=== PATIENT | female | born 1995 | race Two or more races ===

== ENCOUNTER 2016-03-01 12:32 | Emergency (ER) | payer MEDICAID ==
[~2016-03-01] VITALS: Ht 160 cm; Wt 56.7 kg
[~2016-03-01 12:32] MED LIST: CEPHALEXIN500 MG ORAL; IBUPROFEN400 MG ORAL; IBUPROFEN600 MG ORAL; NKM; TRAMADOL HCL50 MG ORAL; ZOFRAN ODT4 MG ORAL
[2016-03-01 13:04] LABS: APPEARANCE,URINE SLIGHTLY CLOUDY; KETONES,URINE NEGATIVE (NEGATIVE); LEUKOCYTE ESTERASE ,URINE 1+ (NEGATIVE); NITRITE,URINE NEGATIVE (NEGATIVE); PH,URINE 6 (4.5-8.0); PROTEIN,URINE 2+ (NEGATIVE); UROBILINOGEN,URINE 4 MG/DL (0.0-1.0)
[2016-03-01 13:25] LABS: BACTERIA,URINE FEW /HPF; MUCUS,URINE FEW /LPF (NONE/OCC); SQUAMOUS EPITHELIAL CELL,UR FEW /LPF (NONE/OCC)
--- NOTE | 2016-03-01 15:22 | Emergency Room Report ---
History of Present Illness General Chief Complaint: Vaginal Source: Patient Present Illness HPI 20-year-old female presents emergency department complaining of lower abdominal pain described as cramping in nature in addition to vaginal bleeding x 2 days Patient states that she did not have a period for the past 2 months when she normally is regular in house one the same time every month. She reports unprotected intercourse and not taking control. Patient says she my . Patient is 2 prior abortions reported as 1 pharmacologically and the other was D&C. She also reports symptoms of UTI such as frequency, urgency and dysuria. She denies vaginal lesions or history of STDs. Patient denies vaginal discharge other than bleeding. Patient reports passage of large size clots. Denies CP, Palpitations, LOC, AMS, dizziness, Changes in Vision, Sensation, paresthesias, or a sudden severe headache. Allergies: Coded Allergies: No Known Allergies (Unverified , 06/06/15) Patient History Past Medical History: see triage record Past Surgical History: none Pertinent Family History: none Last Menstrual Period: nov 2015 Now: Yes : 3 Para: 1 Reviewed Nursing Documentation: PMH: Agreed, PSxH: Agreed Nursing Documentation-PMH Past Medical History: No History, Except For Hx Asthma: Yes Review of Systems All Other Systems: negative except mentioned in HPI Physical Exam Vital Signs Date Time Temp Pulse Resp B/P Pulse Ox O2 Delivery O2 Flow Rate FiO2 03/01/16 12:39 99.1 102 16 88/49 98 Room Air Sp02 EP Interpretation: reviewed, normal General Appearance: no apparent distress, alert, GCS 15, non-toxic Head: normocephalic, atraumatic Eyes: bilateral eye PERRL, bilateral eye normal inspection ENT: hearing grossly normal, normal pharynx, no angioedema, normal voice Neck: full range of motion, supple/symm/no masses Respiratory: chest non-tender, lungs clear, normal breath sounds, speaking full sentences Cardiovascular #1: regular rate, rhythm, no edema Cardiovascular #2: 2+ radial (R), 2+ radial (L) Gastrointestinal: normal bowel sounds, non tender, soft, no guarding, no rebound Rectal: deferred Genitourinary: normal inspection, no CVA tenderness, adnexa normal, ext genitalia/vag normal, os closed, other - Moderate blood noted in the vaginal canal in addition to a large clot. Cervical os is closed. Musculoskeletal: back normal, gait/station normal, normal range of motion, non- tender, no calf tenderness Neurologic: alert, oriented x3, responsive, motor strength/tone normal, sensory intact, speech normal Psychiatric: judgement/insight normal, memory normal, mood/affect normal, no suicidal/homicidal ideation Skin: normal color, no rash, warm/dry, well hydrated Lymphatic: no adenopathy Medical Decision Making PA Attestation Dr. Suarez is my supervising Physician whom patient management has been discussed with. Diagnostic Impression: Primary Impression: Threatened in early Additional Impressions: Subchorionic hematoma in first trimester UTI (urinary tract infection) during Qualified Codes: O23.41 - Unspecified infection of urinary tract in , first trimester ER Course Pt. presents to the ED c/o vaginal bleeding: x 2 days with passage of large size clots with previously not having a menstrual cycle for 2 months and recent objective intercourse. Ddx considered but are not limited to: Fibroid, ectopic , Fibroid, Spontaneous ,Miscarriage, UTI Vital signs: are WNL, pt. is afebrile Pelvic Exam: moderate blood and clots in the vaginal vault, cervical os is closed. H&PE are most consistent with: Threatened , and possible UTI ORDERS: -Urine hcg- Positive - UTI: Bacteria noted, white blood cells, leukocyte esterase indicating urinary tract infection -serum Hcg Quant: [id number] - Blood/RH type and screen- see attached labs : A positive -Pelvic US complete- single -Live intrauterine estimated at 7 weeks gestation , Large subchorionic hematoma- Per official radiology report. ED INTERVENTIONS: None at this time. - d/w the patient the results of her UA and other lab tests. d/w the patient that she'll be placed on antibiotic for UTI as well as bedrest and will need to followup within 48 hours with [facility]. DISCHARGE: At this time pt. is stable for d/c to home. Will provide printed patient care instructions, and any necessary prescriptions. Care plan and follow up instructions have been discussed with the patient prior to discharge. Labs Test 03/01/16 12:51 03/01/16 14:00 Urine Color Yellow Urine Appearance Slightly cloudy Urine pH 6 (4.5-8.0) Urine Specific [place] 1.015 (1.005-1.035) Urine Protein 2+ (NEGATIVE) Urine Glucose (UA) Negative (NEGATIVE) Urine Ketones Negative (NEGATIVE) Urine Occult Blood 4+ (NEGATIVE) Urine Nitrite Negative (NEGATIVE) Urine Bilirubin Negative (NEGATIVE) Urine Urobilinogen 4 MG/DL (0.0-1.0) Urine Leukocyte Esterase 1+ (NEGATIVE) Urine RBC 2-4 /HPF (0 - 2) Urine WBC 5-10 /HPF (0 - 2) Urine Squamous Epithelial Cells Few /LPF (NONE/OCC) Urine Bacteria Few /HPF (NONE) Urine Mucus Few /LPF (NONE/OCC) Urine HCG, Qualitative Positive Human Chorionic Gonadotropin, Quant 70478 mIU/mL Last Vital Signs Date Time Temp Pulse Resp B/P Pulse Ox O2 Delivery O2 Flow Rate FiO2 03/01/16 12:39 99.1 102 16 88/49 98 Room Air Disposition: HOME, SELF-CARE Condition: Stable Scripts Nitrofurantoin Monohyd/M-Cryst* (MACROBID 100 MG*) 100 Mg Capsule 100 MG ORAL EVERY 12 HOURS for 7 Days, #14 CAP Prov: Nancy Amador 03/01/16 Referrals: NOT CHOSEN [facility]/,REFERRING (PCP) Patient Instructions: and Urinary Tract Infection, Subchorionic Hematoma Additional Instructions: Take medications as directed. BED REST Follow up with OBGYN in 48 hours Return sooner to ED if new symptoms occur, or current symptoms become worse. Nancy Amador Mar 01, 2016 15:22
[2016-03-01] MEDS ORDERED: NITROFURANTOIN100 M2 ORAL (15:39)
[2016-03-01 15:53] VITALS: BP 104/63
--- NOTE | 2016-03-08 10:29 | Diagnostic Imaging Report ---
Indication: PAIN, bleeding, positive test Technique: Transabdominal and transvaginal images Comparison: None Findings: Uterus measures 8.8 cm length by 7.1 cm AP. Within the endometrium, there is a gestational sac. This contains a pole and a yolk sac, positive heart activity, heart rate 144 beats per minute. [place]-rump length is 13 mm, corresponding to an estimated gestational age 7 weeks 4 days. Adjacent to the gestational sac, there is an area of heterogeneous echogenicity which probably represents a subchorionic hemorrhage. No myometrial abnormality. Right ovary measures 2.6 cm in length. Left ovary measures 2.9 cm in length. No adnexal mass demonstrated. Trace free cul-de-sac fluid is demonstrated. Impression: 7 week 4 day, by crown-rump length, single live intrauterine Subchorionic hemorrhage noted adjacent to the gestational sac Negative for adnexal mass Trace free cul-de-sac fluid This agrees with the preliminary interpretation provided overnight by Dr. Cintron
== END 2016-03-01 15:53 | disposition home or self-care (01) ==
LOC: EMR 12:55
DX: O20.0 Threatened abortion (principal); O23.41 Unspecified infection of urinary tract in pregnancy, first trimester; Z3A.01 Less than 8 weeks gestation of pregnancy; J45.909 Unspecified asthma, uncomplicated
CPT/HCPCS: 36415; 76801; 76830; 81003; 81025; 84702; 86850; 86900; 86901; 99283

== ENCOUNTER → 2016-08-18 | Emergency (ER) | payer OTHER, MEDICAID ==
[~2016-08-18] VITALS: Ht 160 cm; Wt 61.2 kg
[~2016-08-18] MED LIST changes: +GUAIFENESIN1200 MG PO; +NITROFURANTOIN100 M2 ORAL; +PROMETHAZINE-D118 ML ORAL
[2016-08-18 15:50] VITALS: BP 101/66
--- NOTE | 2016-08-18 16:52 | Emergency Room Report ---
History of Present Illness General Chief Complaint: Sore Throat Source: Patient Present Illness HPI 21-year-old female presents emergency department complaining of 9/10 in severity sore throat with nonproductive cough with increase in phlegm x3 days patient denies fevers or chills. Patient denies ill contacts and states she is up-to-date with vaccinations. Patient denies tonsillar swelling, swollen tender lymph nodes, rashes, abdominal pain. Pt. reports hx of asthma. Denies CP , Palpitations, LOC, AMS, dizziness, Changes in Vision, Sensation, paresthesias , or a sudden severe headache. Allergies: Coded Allergies: No Known Allergies (Unverified , 06/06/15) Patient History Past Medical History: see triage record Past Surgical History: none Pertinent Family History: none Last Menstrual Period: July 25, 2016 Now: No Immunizations: UTD Reviewed Nursing Documentation: PMH: Agreed, PSxH: Agreed Nursing Documentation-PMH Hx Asthma: Yes Review of Systems All Other Systems: negative except mentioned in HPI Physical Exam Vital Signs Date Time Temp Pulse Resp B/P Pulse Ox O2 Delivery O2 Flow Rate FiO2 08/18/16 15:50 98.6 115 14 101/66 99 Room Air Sp02 EP Interpretation: reviewed, normal General Appearance: no apparent distress, alert, GCS 15, non-toxic Head: normocephalic, atraumatic Eyes: bilateral eye PERRL, bilateral eye normal inspection ENT: hearing grossly normal, normal pharynx, no angioedema, normal voice, TMs + canals normal, uvula midline, moist mucus membranes Neck: full range of motion, supple/symm/no masses Respiratory: lungs clear, normal breath sounds, no wheezing, speaking full sentences Cardiovascular #1: regular rate, rhythm, no edema Musculoskeletal: back normal, gait/station normal, normal range of motion, non- tender Neurologic: alert, oriented x3, responsive, motor strength/tone normal, sensory intact, speech normal Psychiatric: judgement/insight normal, memory normal, mood/affect normal Skin: normal color, no rash, warm/dry, well hydrated Lymphatic: no adenopathy Medical Decision Making PA Attestation Dr. Ventura is my supervising Physician whom patient management has been discussed with. Diagnostic Impression: Primary Impression: Upper respiratory infection Qualified Codes: J06.9 - Acute upper respiratory infection, unspecified; B97.89 - Other viral agents as the cause of diseases classified elsewhere ER Course 21-year-old female presents emergency department complaining of 9/10 in severity sore throat with nonproductive cough with increase in phlegm x3 days patient denies fevers or chills. Patient denies ill contacts and states she is up-to-date with vaccinations. Patient denies tonsillar swelling, swollen tender lymph nodes, rashes, abdominal pain. Pt. reports hx of asthma. Ddx considered but are not limited to URI, pneumonia, PE, strep pharyngitis, meningitis. Vital signs: Pt. is afebrile, the remaining VS are WNL H&PE are most consistent with URI- no meningeal signs, oropharynx is not involved, no evidence of bacterial infection at this time. ORDERS: none required at this time, the diagnosis is clinical ED INTERVENTIONS: None required at this time. --PT. EDUCATION: Discussed antibiotic resistance with inappropriate prescribing of antibiotics for viral illnesses. Discussed signs and symptoms to indicate viral illness versus bacterial illness. DISCHARGE: At this time pt. is stable for d/c to home. Will provide printed patient care instructions, and any necessary prescriptions. Care plan and follow up instructions have been discussed with the patient prior to discharge. Last Vital Signs Date Time Temp Pulse Resp B/P Pulse Ox O2 Delivery O2 Flow Rate FiO2 08/18/16 15:50 98.6 115 14 101/66 99 Room Air Disposition: HOME, SELF-CARE Condition: Stable Scripts D-Methorphan Hb/Prometh Hcl* (PROMETHAZINE-DM SYRUP*) 118 Ml Syrup 5 ML ORAL Q6H Y for For Cough, #118 ML 0 Refills Prov: Nancy Amador 08/18/16 Guaifenesin (Guaifenesin) 1,200 Mg Tab.er.12h 1200 MG PO BID for 10 Days, #20 TAB Prov: Nancy Amador 08/18/16 Patient Instructions: Upper Respiratory Infection, Adult, [id number] Additional Instructions: Take medications as directed. Follow up with PCP in 3-5 days Return sooner to ED if new symptoms occur, or current symptoms become worse. - Please note that this Emergency Department Report was dictated using [employer] analyst technology software, occasionally this can lead to erroneous entry secondary to interpretation by the dictation equipment. Nancy Amador Aug 18, 2016 16:52
[2016-08-18 17:10] VITALS: BP 101/66
== END | disposition home or self-care (01) ==
LOC: EMR 16:50
DX: J06.9 Acute upper respiratory infection, unspecified (principal); J45.909 Unspecified asthma, uncomplicated
CPT/HCPCS: 99284

== ENCOUNTER 2016-10-12 14:43 | Emergency (ER) | payer OTHER, MEDICAID ==
[~2016-10-12] VITALS: Ht 160 cm; Wt 59.0 kg
[2016-10-12] MEDS ORDERED: PROAIR HFA8.5 GM INH (15:12)
[2016-10-12] MEDS ORDERED: PREDNISONE20 MG ORAL (15:12)
[2016-10-12] MEDS ORDERED: AMOXICILLIN500 MG ORAL (15:12)
[2016-10-12] MEDS ORDERED: PROMETHAZI6.25 MG/1 ORAL (15:12)
--- NOTE | 2016-10-12 15:24 | Emergency Room Report ---
History of Present Illness General Chief Complaint: Sore Throat Source: Patient Present Illness HPI The patient is a 21-year-old female with a history of asthma presenting for sore throat and cough for the past 2 days. She also admits to subjective fevers and chills. Pain described as an 8/10 dull ache to the back of the throat. Worse with swallowing and coughing. She denies any sick contacts recent travel. She states that she has run out of her albuterol. She denies any other symptoms including SOB, CP, rash, dizziness, abd pain Allergies: Coded Allergies: No Known Allergies (Unverified , 06/06/15) Patient History Past Medical History: see triage record Pertinent Family History: none Last Menstrual Period: now Now: No Reviewed Nursing Documentation: PMH: Agreed, PSxH: Agreed Nursing Documentation-PMH Past Medical History: No History, Except For Hx Asthma: Yes Review of Systems All Other Systems: negative except mentioned in HPI Physical Exam Vital Signs Date Time Temp Pulse Resp B/P Pulse Ox O2 Delivery O2 Flow Rate FiO2 10/12/16 14:52 98.6 97 18 108/73 98 Room Air Sp02 EP Interpretation: reviewed, normal General Appearance: no apparent distress, alert, GCS 15, non-toxic Head: normocephalic, atraumatic Eyes: bilateral eye PERRL, bilateral eye normal inspection ENT: hearing grossly normal, no angioedema, normal voice, uvula midline, tonsillar swelling, pharyngeal erythema, tonsillar exudate Neck: full range of motion, supple/symm/no masses Respiratory: chest non-tender, lungs clear, normal breath sounds, speaking full sentences Musculoskeletal: back normal, gait/station normal, normal range of motion, non- tender Neurologic: alert, oriented x3, responsive, motor strength/tone normal, sensory intact, speech normal Psychiatric: judgement/insight normal, memory normal, mood/affect normal, no suicidal/homicidal ideation Skin: normal color, no rash, warm/dry, well hydrated Lymphatic: adenopathy - cervical Medical Decision Making PA Attestation Dr. Pyle is my supervising physician. Patient management was discussed with my supervising physician Diagnostic Impression: Primary Impression: Pharyngitis, acute Qualified Codes: J02.9 - Acute pharyngitis, unspecified ER Course The patient is a 21-year-old female presenting with sore throat and cough Differential diagnosis include but not limited to pharyngitis, sinusitis, AOM, bronchitis, PNA, asthma, amogn others Physical exam: Vitals within normal limits. Afebrile. No apparent distress HEENT exam: There is bilateral tonsillar edema, erythema, and exudate. Uvula midline. Moist mucous membranes. There is bilateral cervical lymphadenopathy. Lungs are clear to auscultation bilaterally Skin is warm and dry. No rash The patient will be discharged home with a prescription for amoxicillin, prednisone, cough medication and is given ER precautions. Patient will followup with primary care. Refill for albuterol given. Last Vital Signs Date Time Temp Pulse Resp B/P Pulse Ox O2 Delivery O2 Flow Rate FiO2 10/12/16 14:52 98.6 97 18 108/73 98 Room Air Status: improved Disposition: HOME, SELF-CARE Condition: Improved Scripts Albuterol Sulfate* (PROAIR HFA*) 8.5 Gm Hfa.aer.ad 2 PUFFS INH Q6H, #8.5 GM 0 Refills Prov: SHARI RANDA. 10/12/16 Promethazine Hcl (PROMETHAZINE HCL*) 6.25 Mg/5 Ml Syrup 5 ML ORAL Q8H, #120 ML 0 Refills Prov: SHARI RAND P.A. 10/12/16 Prednisone* (PREDNISONE*) 20 Mg Tablet 20 MG ORAL DAILY, #5 TAB 0 Refills Prov: TERZIANCLIFFORDY P.A. 10/12/16 Amoxicillin* (AMOXIL*) 500 Mg Capsule 500 MG ORAL Q12HR, #20 CAP Prov: TACHOANSHARI P.A. 10/12/16 Patient Instructions: Pharyngitis Additional Instructions: I discussed my findings with the patient. All questions and concerns have been answered. Treatment and medication compliance have been addressed. I advised the patient that they need to follow up with PMD in 3-5 days. Return to ED if pain remains or worsens, cough worsens or remains, you notice blood in your sputum, you notice wheezing, you experience a fever, or if needed for any reason. Patient verbalized understanding of discharge instructions. SHARI RAND Oct 12, 2016 15:24
[2016-10-12 15:33] VITALS: BP 108/73
[2016-10-12 15:36] VITALS: BP 108/73
== END 2016-10-12 15:36 | disposition home or self-care (01) ==
LOC: EMR 15:02
DX: J02.9 Acute pharyngitis, unspecified (principal); J45.909 Unspecified asthma, uncomplicated
CPT/HCPCS: 99284

== ENCOUNTER 2016-11-07 09:38 | Emergency (ER) | payer OTHER, MEDICAID ==
[~2016-11-07] VITALS: Ht 160 cm; Wt 61.2 kg
[~2016-11-07 09:38] MED LIST changes: +AMOXICILLIN500 MG ORAL; +PREDNISONE20 MG ORAL; +PROAIR HFA8.5 GM INH; +PROMETHAZI6.25 MG/1 ORAL
--- NOTE | 2016-11-07 09:53 | Emergency Room Report ---
History of Present Illness General Chief Complaint: Sore Throat Source: Patient Present Illness HPI Patient with sore throat for several weeks. States passing between daughter and herself. Pain with swallowing 09/07, sharp, not radiating. Taking advil with minimal relief. Also has cough which is not productive. H/O asthma. No wheezing heard. Treated with prednisone, amox and phenergan DM 10/12. States not significantly better. No smoking. No NVD, not . 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 Last Menstrual Period: 10/17/16 Now: No Reviewed Nursing Documentation: PMH: Agreed, PSxH: Agreed Nursing Documentation-PMH Hx Asthma: Yes Review of Systems All Other Systems: negative except mentioned in HPI Physical Exam Vital Signs Date Time Temp Pulse Resp B/P (MAP) Pulse Ox O2 Delivery O2 Flow Rate FiO2 11/07/16 09:41 97.9 90 17 101/63 99 Room Air Sp02 EP Interpretation: reviewed, normal General Appearance: well appearing, no apparent distress Head: normocephalic, atraumatic Eyes: bilateral eye normal inspection, bilateral eye PERRL ENT: hearing grossly normal, normal voice, pharyngeal erythema, other - no exudates or swelling Neck: full range of motion, supple Respiratory: lungs clear, normal breath sounds, no respiratory distress, speaking full sentences Cardiovascular #1: regular rate, rhythm Cardiovascular #2: 2+ radial (L) Gastrointestinal: normal inspection Musculoskeletal: back normal, digits/nails normal, gait/station normal, normal range of motion, no calf tenderness Neurologic: alert, oriented x3, normal gait, grossly normal Psychiatric: mood/affect normal Skin: no rash Medical Decision Making Diagnostic Impression: Primary Impression: Upper respiratory infection Qualified Codes: J06.9 - Acute upper respiratory infection, unspecified ER Course Patient with persistent sore throat and cough post treatment with abx 10/12. No exudates at this time. More viral symptomatology. No significant bronchospasm (still has albuterol). Focus on treatment of symptoms. Discussed this with patient. Patient stable for outpatient observation and treatment. (Patient made a point of asking for stronger cough syrup than DM.) Last Vital Signs Date Time Temp Pulse Resp B/P (MAP) Pulse Ox O2 Delivery O2 Flow Rate FiO2 11/07/16 10:01 97.9 17 101/63 99 Room Air 11/07/16 10:00 88 Status: unchanged Disposition: HOME, SELF-CARE Condition: Stable Scripts Promethazine HCl/Codeine (Prometh-Codein 6.25-10 mg/5 ml) 5 Ml Syrup 5 ML PO Q6HR, #60 ML Prov: Alvarez Pyle M.D. 11/07/16 Chlorpheniramine Maleate (CHLOR-TRIMETON) 4 Mg Tablet 4 MG PO Q6HR Y for congestion, #14 TAB Prov: Alvarez Pyle M.D. 11/07/16 Alvarez Pyle M.D. Nov 07, 2016 09:53
[2016-11-07] MEDS ORDERED: PROMETH-CODEIN 65 ML PO (09:56)
[2016-11-07] MEDS ORDERED: CHLOR-TRIMETON4 MG PO (09:56)
[2016-11-07 10:00] VITALS: BP 103/65
[2016-11-07 10:01] VITALS: BP 101/63
== END 2016-11-07 10:04 | disposition home or self-care (01) ==
LOC: EMR 09:59
DX: J06.9 Acute upper respiratory infection, unspecified (principal); J45.909 Unspecified asthma, uncomplicated
CPT/HCPCS: 99284

== ENCOUNTER 2016-12-11 14:01 | Emergency (ER) | payer OTHER, MEDICAID ==
[~2016-12-11] VITALS: Ht 160 cm; Wt 57.6 kg
[~2016-12-11 14:01] MED LIST changes: +CHLOR-TRIMETON4 MG PO; +PROMETH-CODEIN 65 ML PO
[2016-12-11 14:21] VITALS: BP 103/64
[2016-12-11] MEDS ORDERED: PROAIR HFA8.5 GM INH (14:25)
[2016-12-11] MEDS ORDERED: PROMETHAZINE-D118 ML ORAL (14:25)
[2016-12-11] MEDS ORDERED: CLARITIN-D 241 EACH PO (14:25)
[2016-12-11] MEDS ORDERED: FLONASE SENSIM9.9 ML NS (14:25)
--- NOTE | 2016-12-11 16:53 | Emergency Room Report ---
History of Present Illness General Chief Complaint: Medication Refill Source: Patient Present Illness HPI The patient is a 21-year-old female with a history of asthma presenting for albuterol refill as well as cough and nasal congestion x 1 week. She states that she has been becoming short of breath during activity such as climbing stairs. She also admits to allergies but is unsure what she is allergic to. She has not taken any medications. She denies any known sick contacts or recent travel. She denies other symptoms including fever, chills, headache, sore throat, rash Allergies: Coded Allergies: No Known Allergies (Unverified , 06/06/15) Patient History Past Medical History: see triage record Pertinent Family History: none Reviewed Nursing Documentation: PMH: Agreed, PSxH: Agreed Nursing Documentation-PMH Hx Asthma: Yes Review of Systems All Other Systems: negative except mentioned in HPI Physical Exam Vital Signs Date Time Temp Pulse Resp B/P (MAP) Pulse Ox O2 Delivery O2 Flow Rate FiO2 12/11/16 14:06 98.8 119 20 103/64 99 Room Air Sp02 EP Interpretation: reviewed, normal General Appearance: no apparent distress, alert, GCS 15, non-toxic Head: normocephalic, atraumatic Eyes: bilateral eye normal inspection, bilateral eye PERRL ENT: hearing grossly normal, normal pharynx, no angioedema, normal voice, TMs + canals normal, uvula midline, nasal congestion Neck: full range of motion, supple/symm/no masses Respiratory: chest non-tender, lungs clear, normal breath sounds, speaking full sentences Cardiovascular #1: regular rate, rhythm, no edema Musculoskeletal: back normal, gait/station normal, normal range of motion, non- tender Neurologic: alert, oriented x3, responsive, motor strength/tone normal, sensory intact, speech normal Psychiatric: judgement/insight normal, memory normal, mood/affect normal, no suicidal/homicidal ideation Skin: normal color, no rash, warm/dry, well hydrated Lymphatic: no adenopathy Medical Decision Making PA Attestation Dr. Gilmore is my supervising physician. Patient management was discussed with my supervising physician Diagnostic Impression: Primary Impression: Asthma Qualified Codes: J45.20 - Mild intermittent asthma, uncomplicated Additional Impressions: Environmental allergies Allergic rhinitis Qualified Codes: J30.9 - Allergic rhinitis, unspecified ER Course The patient is a 21-year-old female presenting for albuterol refill and allergies Differential diagnoses considered but not limited to: Asthma exacerbation, bronchitis, pneumonia, anxiety, allergies Physical exam: Vitals within normal limits. No apparent distress HEENT exam reveals nasal congestion. Oropharynx unremarkable Lungs: Lungs are clear to auscultation bilaterally. Chest is nontender. No respiratory distress. No accessory muscle use. The patient is given refill of albuterol as well as medications for allergic rhinitis. She'll followup with her primary doctor. ER precautions given Last Vital Signs Date Time Temp Pulse Resp B/P (MAP) Pulse Ox O2 Delivery O2 Flow Rate FiO2 12/11/16 15:08 98.8 20 103/64 99 Room Air 12/11/16 14:06 119 Status: improved Disposition: HOME, SELF-CARE Condition: Improved Scripts Loratadine/Pseudoephedrine (CLARITIN-D 24 HOUR TABLET) 1 Each Tab.er.24h 1 TAB PO DAILY, #30 TAB Prov: TERZIAN,SHARI P.A. 12/11/16 Fluticasone Furoate (FLONASE SENSIMIST) 9.9 Ml Dietrich.susp 1 ML NS DAILY, #10 ML Prov: TERZIAN,SHARI P.A. 12/11/16 D-Methorphan Hb/Prometh Hcl* (PROMETHAZINE-DM SYRUP*) 118 Ml Syrup 5 ML ORAL Q6H Y for For Cough, #120 ML 0 Refills Prov: TERZIAN,SHARI P.A. 12/11/16 Albuterol Sulfate* (PROAIR HFA*) 8.5 Gm Hfa.aer.ad 2 PUFFS INH Q6H, #8.5 GM 0 Refills Prov: TERZIAN,SHARI P.A. 12/11/16 Ref[facility]: [facility] (PCP) Patient Instructions: Asthma, Adult, Allergic Rhinitis Additional Instructions: I discussed my findings with the patient. All questions and concerns have been answered. Treatment and medication compliance have been addressed. I advised the patient that they need to follow up with PMD in 3-5 days. Return to ED if pain remains or worsens, cough worsens or remains, you notice blood in your sputum, you notice wheezing, you experience a fever, or if needed for any reason. Patient verbalized understanding of discharge instructions. SHARI RAND Dec 11, 2016 16:53
== END 2016-12-11 14:30 | disposition home or self-care (01) ==
LOC: EMR 14:20
DX: J45.909 Unspecified asthma, uncomplicated (principal); J30.9 Allergic rhinitis, unspecified
CPT/HCPCS: 99284

== ENCOUNTER 2017-03-14 15:47 | Emergency (ER) | payer MEDICAID, OTHER ==
[~2017-03-14] VITALS: Ht 160 cm; Wt 56.7 kg
[~2017-03-14 15:47] MED LIST changes: +CLARITIN-D 241 EACH PO; +FLONASE SENSIM9.9 ML NS
[2017-03-14] MEDS ORDERED: ALBUTEROL SULF8.5 GM INH (16:22)
[2017-03-14] MEDS ORDERED: TESSALON PERLE100 MG ORAL (16:22)
[2017-03-14] MEDS ORDERED: IBUPROFEN600 MG ORAL (16:22)
[2017-03-14 16:35] VITALS: BP 111/78
--- NOTE | 2017-03-14 16:59 | Emergency Room Report ---
History of Present Illness General Chief Complaint: Flu Like Symptoms Source: Patient Present Illness HPI 21-year-old female with pmhx asthma p/w cough sore throat, runny nose for 3 days. Pt states cough is productive, with clear non bloody sputum. Denies fever chills sob or chest pain. No sick contacts or recent travel. Patient does not smoke. Allergies: Coded Allergies: No Known Allergies (Unverified , 06/06/15) Patient History Past Medical History: see triage record Past Surgical History: none Pertinent Family History: none Last Menstrual Period: 03/01/2017 Reviewed Nursing Documentation: PMH: Agreed, PSxH: Agreed Nursing Documentation-PMH Past Medical History: No History, Except For Hx Asthma: Yes Review of Systems All Other Systems: negative except mentioned in HPI Physical Exam Vital Signs Date Time Temp Pulse Resp B/P (MAP) Pulse Ox O2 Delivery O2 Flow Rate FiO2 03/14/17 16:04 99.0 96 16 109/67 99 Room Air Sp02 EP Interpretation: reviewed, normal General Appearance: normal inspection, well appearing, no apparent distress, alert, GCS 15, non-toxic Head: normocephalic, atraumatic Eyes: bilateral eye normal inspection, bilateral eye PERRL, bilateral eye EOMI ENT: tonsillar swelling, pharyngeal erythema, other - no exudates. uvula midline.no cryptanalyst Neck: normal inspection, full range of motion, supple Respiratory: normal inspection, lungs clear, normal breath sounds, no respiratory distress, no retraction, no wheezing, speaking full sentences, chest symmetrical Cardiovascular #1: normal inspection, regular rate, rhythm, no edema, normal capillary refill Cardiovascular #2: 2+ radial (R), 2+ radial (L) Gastrointestinal: normal inspection, non tender, soft, non-distended, no guarding Musculoskeletal: normal inspection, back normal, normal range of motion, non- tender Neurologic: normal inspection, alert, oriented x3, responsive, motor strength/ tone normal, sensory intact, normal gait, speech normal Psychiatric: normal inspection, judgement/insight normal, memory normal Skin: normal inspection, normal color, no rash, warm/dry, well hydrated, normal turgor Medical Decision Making Diagnostic Impression: Primary Impression: Viral syndrome ER Course 21-year-old female with asthma presenting with cough sore throat runny nose DDX: Viral URI Plan: Motrin ER course: Patient remains nontoxic, not in resp distress. Disposition: Patient is to be discharged home with a prescription of dieudonne donald Motavinash , asthma inhaler Strict precautions discussed with patient on when to return to the emergency room including hemoptysis, high fevers, chills, SOB, chest pain which may indicate severe illness. Patient is to follow up with their primary care doctor within 5 days. Patient agrees with plan. Please note that this Emergency Department Report was dictated using [employer] manager technology software, occasionally this can lead to erroneous entry secondary to interpretation by the dictation equipment Last Vital Signs Date Time Temp Pulse Resp B/P (MAP) Pulse Ox O2 Delivery O2 Flow Rate FiO2 03/14/17 16:35 80 19 111/78 99 03/14/17 16:04 99.0 Room Air Disposition: HOME, SELF-CARE Condition: Improved Scripts Ibuprofen* (MOTRIN*) 600 Mg Tablet 600 MG ORAL Q8H Y for For Pain, #30 TAB 0 Refills Prov: Levi Mascorro M.D. 03/14/17 Albuterol Sulfate* (ALBUTEROL SULFATE MDI*) 8.5 Gm Hfa.aer.ad 2 PUFF INH Q4H Y for cough/wheezing, #1 EA 0 Refills Prov: Levi Mascorro M.D. 03/14/17 Benzonatate* (JUDISALON PERLE*) 100 Mg Capsule 100 MG ORAL THREE TIMES A DAY Y for For Cough, #21 PERLE Prov: Levi Mascorro M.D. 03/14/17 Patient Instructions: Upper Respiratory Infection, Adult, Choh-br-Ewsy Levi Mascorro M.D. Mar 14, 2017 16:59
== END 2017-03-14 18:30 | disposition home or self-care (01) ==
LOC: EMR 18:15
DX: B34.9 Viral infection, unspecified (principal)
CPT/HCPCS: 99283

== ENCOUNTER 2018-06-29 23:21 | Emergency (ER) | payer MEDICAID ==
[~2018-06-29] VITALS: Ht 160 cm; Wt 79.8 kg
[~2018-06-29 23:21] MED LIST changes: +ALBUTEROL SULF8.5 GM INH; +TESSALON PERLE100 MG ORAL
[2018-06-29 23:28] VITALS: BP 109/66
--- NOTE | 2018-06-29 23:30 | NUR ---
ED Nurse Note: pt came to ed c/o of sore throat for 2 days. denies headache, nausea.
[2018-06-29] MEDS ORDERED: AUGMENTIN 875-1 EAC1 ORAL (23:48)
[2018-06-29] MEDS ORDERED: HYDROCODON-ACE1 EA15 ORAL (23:48)
[2018-06-29] MEDS ORDERED: ALBUTEROL SULF8.5 GM INH (23:48)
[2018-06-29] MEDS ORDERED: IBUPROFEN600 MG ORAL (23:48)
--- NOTE | 2018-06-29 23:48 | Emergency Room Report ---
History of Present Illness General Chief Complaint: Sore Throat Source: Patient Present Illness HPI Is a 22-year-old female with a history of asthma. She presents with complaint of sore throat. Onset for last 2 days. Has low-grade fever. No nausea no vomiting. No cough or congestion. No ear pain. Pain is 9 out of 10. Worse with swallowing. Nothing made it better. Allergies: Coded Allergies: No Known Allergies (Unverified , 06/06/15) Patient History Past Medical History: see triage record, old chart reviewed, asthma Past Surgical History: none Pertinent Family History: none Social History: Denies: smoking Last Menstrual Period: 06/01/18 Now: No : 2 Para: 2 Immunizations: other Reviewed Nursing Documentation: PMH: Agreed; PSxH: Agreed Nursing Documentation-PMH Past Medical History: No History, Except For Hx Asthma: Yes Review of Systems Constitutional: Reports: fever Eye: Denies: eye pain, blurred vision ENT: Reports: throat pain; Denies: ear pain, nose congestion, throat swelling Respiratory: Denies: cough, shortness of breath Cardiovascular: Denies: chest pain, palpitations Gastrointestinal: Denies: abdominal pain, diarrhea, nausea, vomiting Musculoskeletal: Denies: back pain, joint pain Skin: Denies: rash Neurological: Denies: headache, numbness Endocrine: Denies: increased thirst, increased urine Hematologic/Lymphatic: Denies: easy bruising All Other Systems: negative except mentioned in HPI Physical Exam Vital Signs Date Time Temp Pulse Resp B/P (MAP) Pulse Ox O2 Delivery O2 Flow Rate FiO2 06/29/18 23:23 100.0 98 18 109/66 100 Room Air vitals with fever Sp02 EP Interpretation: reviewed, normal General Appearance: well appearing, no apparent distress, alert Head: normocephalic, atraumatic Eyes: bilateral eye PERRL, bilateral eye EOMI ENT: hearing grossly normal, tonsillar swelling, pharyngeal erythema, tonsillar exudate Neck: full range of motion, supple, no meningismus Respiratory: chest non-tender, lungs clear, normal breath sounds Cardiovascular #1: regular rate, rhythm, no murmur Gastrointestinal: normal bowel sounds, non tender, no mass, no organomegaly, no bruit, non-distended Musculoskeletal: back normal, gait/station normal, normal range of motion Psychiatric: mood/affect normal Skin: warm/dry Medical Decision Making Diagnostic Impression: Primary Impression: Pharyngitis, acute Qualified Codes: J02.9 - Acute pharyngitis, unspecified ER Course Patient with an acute pharyngitis. Most likely strep since she has no other URI symptoms. We'll start her antibiotics. No evidence of peritonsillar abscess, retropharyngeal abscess or Magdy angina. She has no trismus. We'll discharge home. Last Vital Signs Date Time Temp Pulse Resp B/P (MAP) Pulse Ox O2 Delivery O2 Flow Rate FiO2 06/29/18 23:28 100.0 98 18 109/66 100 Room Air Status: improved Disposition: HOME, SELF-CARE Condition: Stable Scripts Ibuprofen* (MOTRIN*) 600 Mg Tablet 600 MG ORAL THREE TIMES A DAY, #30 TAB 0 Refills Prov: James Resendiz MD 06/29/18 Hydrocodone/Acetaminophen 5-325* (HYDROCODONE/ACETAMINOPHEN 5-325*) 1 Each Tablet 1 TAB ORAL Q6H PRN for For Pain, #15 TAB 0 Refills Prov: James Resendiz MD 06/29/18 Amoxicillin/Potassium Clav 875-125* (AUGMENTIN 875-125 TABLET*) 1 Each Tablet 1 TAB ORAL TWICE A DAY, #14 TAB Prov: James Resendiz MD 06/29/18 Albuterol Sulfate* (ALBUTEROL SULFATE MDI*) 8.5 Gm Hfa.aer.ad 2 PUFF INH Q4H PRN for cough/wheezing, #1 EA 0 Refills Prov: James Resendiz MD 06/29/18 Patient Instructions: Tonsillitis Additional Instructions: Increase fluids. Salt water gargle. Follow-up with your doctor in 7 days if not better. Return if worse. James Resendiz MD June 29, 2018 23:48
[2018-06-29 23:52] VITALS: BP 109/66
--- NOTE | 2018-06-29 23:53 | NUR ---
ER DISCHARGE NOTE: Patient is cleared to be discharged per ERMD, pt is aox4, on room air, with stable vital signs. pt was given dc and prescription instructions, pt was able to verbalize understanding, pt id band remvoed. pt is able to ambulate with steady gait. pt took all belongings.
== END 2018-06-29 23:52 | disposition home or self-care (01) ==
LOC: EMR 23:38
DX: J02.9 Acute pharyngitis, unspecified (principal); J45.909 Unspecified asthma, uncomplicated
CPT/HCPCS: 99282; J7512

== ENCOUNTER 2018-07-27 23:28 | Emergency (ER) | payer MEDICAID ==
[~2018-07-27] VITALS: Ht 160 cm; Wt 77.1 kg
[~2018-07-27 23:28] MED LIST changes: +AUGMENTIN 875-1 EAC1 ORAL; +HYDROCODON-ACE1 EA15 ORAL
--- NOTE | 2018-07-27 23:45 | NUR ---
ED Nurse Note: Received report. Pt from home, AAOx4, ambulatory, c/o sore throat and cough for 4days. Will assess and carry out ER MD's orders.
--- NOTE | 2018-07-27 23:53 | Emergency Room Report ---
History of Present Illness General Chief Complaint: Sore Throat Source: Patient Present Illness HPI Patient presents with 4 days of sore throat, cough and runny nose. She was recently treated for strep pharyngitis. Allergies: Coded Allergies: No Known Allergies (Unverified , 06/06/15) Patient History Last Menstrual Period: 07-13-2018 Reviewed Nursing Documentation: PMH: Agreed; PSxH: Agreed Nursing Documentation-PMH Past Medical History: No Stated History Hx Asthma: Yes Physical Exam Vital Signs Date Time Temp Pulse Resp B/P (MAP) Pulse Ox O2 Delivery O2 Flow Rate FiO2 07/27/18 23:40 98.2 70 16 107/69 (82) 98 Room Air Medical Decision Making Diagnostic Impression: Primary Impression: Upper respiratory infection Status: improved Disposition: HOME, SELF-CARE Condition: Improved Alvarez Pyle MD July 27, 2018 23:53
[2018-07-27] MEDS ORDERED: ROBITUSSIN COU237 M2 PO (23:55)
[2018-07-27] MEDS ORDERED: IBUPROFEN600 MG ORAL (23:55)
[2018-07-27] MEDS ORDERED: CHLOR-TRIMETON4 MG PO (23:55)
[2018-07-28] MEDS ORDERED: Pseudoephedrine 30mg tab ORAL ONE
[2018-07-28 00:02] VITALS: BP 107/69
--- NOTE | 2018-07-28 00:13 | NUR ---
ED Nurse Note: Pt cleared by health care Provider for discharge. DC instructions/prescription was given and explained to pt and verbalized understanding of teachings. All medical deviecs such as ID band removed. Pt is AAO x4, ambulatory and left with all personal belongings.
== END 2018-07-28 00:10 | disposition home or self-care (01) ==
LOC: EMR 23:59
DX: J06.9 Acute upper respiratory infection, unspecified (principal); J45.909 Unspecified asthma, uncomplicated
CPT/HCPCS: 99282

== ENCOUNTER 2018-11-01 20:29 | Emergency (ER) | payer MEDICAID ==
[~2018-11-01] VITALS: Ht 160 cm; Wt 75.3 kg
[~2018-11-01 20:29] MED LIST changes: +ROBITUSSIN COU237 M2 PO
--- NOTE | 2018-11-01 20:40 | NUR ---
ED Nurse Note: Pt walked in c/o sharp pain on RLQ, pt states she went to physical today and the clinic said pt has UTI. denies problem with urination, reports hx kidney problem. Pt is AO x 4times, VSS, on room air no distress. DUSTIN seen Pt at bedside.
--- NOTE | 2018-11-01 21:32 | Emergency Room Report ---
History of Present Illness General Chief Complaint: Pain Source: Patient, Medical Record Present Illness HPI Is a 23-year-old female with no past medical history. She is said she has been feeling sick for the last 2 days she has subjective fever. She also has side pain and felt weak. Also has cloudy urine. No nausea no vomiting. No diarrhea. Nothing made it better. Exertion made it worse. Allergies: Coded Allergies: No Known Allergies (Unverified , 06/06/15) Patient History Past Medical History: see triage record, old chart reviewed Past Surgical History: none Pertinent Family History: none Social History: Denies: smoking Last Menstrual Period: 10/18/18 Now: No : 3 Para: 2 Immunizations: other Reviewed Nursing Documentation: PMH: Agreed; PSxH: Agreed Nursing Documentation-PMH Hx Asthma: Yes Review of Systems Constitutional: Reports: fever, malaise, weakness Eye: Denies: eye pain, blurred vision ENT: Denies: ear pain, nose congestion, throat swelling Respiratory: Denies: cough, shortness of breath Cardiovascular: Denies: chest pain, palpitations Gastrointestinal: Denies: abdominal pain, diarrhea, nausea, vomiting Musculoskeletal: Reports: back pain; Denies: joint pain Skin: Denies: rash Neurological: Denies: headache, numbness Endocrine: Denies: increased thirst, increased urine Hematologic/Lymphatic: Denies: easy bruising All Other Systems: negative except mentioned in HPI Physical Exam Vital Signs Date Time Temp Pulse Resp B/P (MAP) Pulse Ox O2 Delivery O2 Flow Rate FiO2 11/01/18 20:36 102.7 106 18 99 Room Air vitals with fever Sp02 EP Interpretation: reviewed, normal General Appearance: well appearing, no apparent distress, alert Head: normocephalic, atraumatic Eyes: bilateral eye PERRL, bilateral eye EOMI ENT: hearing grossly normal, normal pharynx Neck: full range of motion, supple, no meningismus Respiratory: chest non-tender, lungs clear, normal breath sounds Cardiovascular #1: regular rate, rhythm, no murmur Gastrointestinal: normal bowel sounds, non tender, no mass, no organomegaly, no bruit, non-distended Musculoskeletal: back normal, gait/station normal, normal range of motion Psychiatric: mood/affect normal Medical Decision Making Diagnostic Impression: Primary Impression: Pyelonephritis Additional Impression: SIRS (systemic inflammatory response syndrome) ER Course Patient presents with fever and has positive urinalysis. Antibiotics given. She felt better now. Will discharge home. Last Vital Signs Date Time Temp Pulse Resp B/P (MAP) Pulse Ox O2 Delivery O2 Flow Rate FiO2 11/01/18 20:36 102.7 106 18 99 Room Air Status: improved Disposition: HOME, SELF-CARE Condition: Stable Scripts Levofloxacin* (LEVAQUIN*) 500 Mg Tablet 500 MG ORAL DAILY, #10 TAB Prov: James Resendiz MD 11/01/18 Ibuprofen* (MOTRIN*) 600 Mg Tablet 600 MG ORAL THREE TIMES A DAY, #30 TAB 0 Refills Prov: James Resendiz MD 11/01/18 Additional Instructions: Follow-up with your doctor in 2 3 days for recheck. Return if symptoms worsen. Increase fluids. James Resendiz MD Nov 01, 2018 21:32
[2018-11-01 21:46] LABS: APPEARANCE,URINE CLOUDY; BILIRUBIN, URINE NEGATIVE (NEGATIVE); COLOR,URINE PALE YELLOW; GLUCOSE, URINE (UA) NEGATIVE (NEGATIVE); KETONES,URINE NEGATIVE (NEGATIVE); LEUKOCYTE ESTERASE ,URINE 3+ (NEGATIVE); NITRITE,URINE NEGATIVE (NEGATIVE); PH,URINE 7 (4.5-8.0); PROTEIN,URINE 2+ (NEGATIVE); UROBILINOGEN,URINE NORMAL MG/DL (0.0-1.0)
[2018-11-01] MEDS ORDERED: Piperacillin/Tazobactam 3.375 GM in NS 110 ML IVPB ONE (22:00)
[2018-11-01] MEDS ORDERED: IBUPROFEN600 MG ORAL (22:43)
[2018-11-01] MEDS ORDERED: LEVAQUIN500 MG ORAL (22:43)
[2018-11-01 22:49] VITALS: BP 124/69
--- NOTE | 2018-11-01 22:51 | NUR ---
ER DISCHARGE NOTE: Patient is cleared to be discharged per ERMD, pt is aox4, on room air, with stable vital signs. pt was given dc and prescription instructions, pt was able to verbalize understanding, pt id band and iv site removed without complications. pt is able to ambulate with steady gait. pt took all belongings.
[2018-11-01 22:52] VITALS: BP 124/69
== END 2018-11-01 22:52 | disposition home or self-care (01) ==
LOC: EMR 21:26
DX: N12 Tubulo-interstitial nephritis, not specified as acute or chronic (principal); R65.10 Systemic inflammatory response syndrome (SIRS) of non-infectious origin without acute organ dysfunction; J45.909 Unspecified asthma, uncomplicated
CPT/HCPCS: 81003; 81025; 86710; 87086; 87181; 96365; 99284; J2543

== ENCOUNTER → 2019-02-03 | Emergency (ER) | payer MEDICAID ==
[~2019-02-03] VITALS: Ht 157.5 cm; Wt 72.6 kg
[~2019-02-03] MED LIST changes: +LEVAQUIN500 MG ORAL; +ZITHROMAX250 MG ORAL
[2019-02-03 16:46] VITALS: BP 109/58
--- NOTE | 2019-02-03 17:05 | Emergency Room Report ---
History of Present Illness General Chief Complaint: Flu Like Symptoms Source: Patient Present Illness HPI 23-year-old female with no symptom past medical history here complaining of 4 days of 10 with 10 sore throat, cough and congestion. Denies chest pain, shortness of breath, wheezing, abdominal pain, nausea vomiting. Complains of fever and chills at home. Has not taken medication for symptom relief. Denies tobacco smoke. Denies sick contact, recent travel. Allergies: Coded Allergies: No Known Allergies (Unverified , 06/06/15) Patient History Past Medical History: see triage record Past Surgical History: unable to obtain Pertinent Family History: none Last Menstrual Period: 01/30/2019 Now: No Immunizations: UTD Reviewed Nursing Documentation: PMH: Agreed; PSxH: Agreed Nursing Documentation-PMH Past Medical History: No History, Except For Hx Asthma: Yes Review of Systems All Other Systems: negative except mentioned in HPI Physical Exam Vital Signs Date Time Temp Pulse Resp B/P (MAP) Pulse Ox O2 Delivery O2 Flow Rate FiO2 02/03/19 16:46 100.8 115 18 109/58 (75) 96 Room Air Sp02 EP Interpretation: reviewed, normal General Appearance: no apparent distress, alert, GCS 15, non-toxic Head: normocephalic, atraumatic Eyes: bilateral eye normal inspection, bilateral eye PERRL ENT: no angioedema, normal voice, TMs + canals normal, uvula midline, nasal congestion, tonsillar swelling, tonsillar exudate Neck: full range of motion, supple, no meningismus, no bony tend, supple/symm/ no masses Respiratory: chest non-tender, lungs clear, normal breath sounds, no rhonchi, no wheezing, speaking full sentences Cardiovascular #1: regular rate, rhythm, no edema, no murmur Gastrointestinal: non tender, soft, no mass Rectal: deferred Musculoskeletal: back normal, digits/nails normal Neurologic: alert, motor strength/tone normal, oriented x3, sensory intact, responsive, speech normal Psychiatric: judgement/insight normal, memory normal, mood/affect normal, no suicidal/homicidal ideation Skin: no rash Lymphatic: no adenopathy Medical Decision Making PA Attestation All my diagnosis and treatment plans were reviewed ad discussed with my supervising physician Dr. Ventura Diagnostic Impression: Primary Impression: Strep pharyngitis ER Course 23-year-old female with no symptom past medical history here complaining of 4 days of 10 with 10 sore throat, cough and congestion. Denies chest pain, shortness of breath, wheezing, abdominal pain, nausea vomiting. Complains of fever and chills at home. Has not taken medication for symptom relief. Denies tobacco smoke. Denies sick contact, recent travel. Ddx considered but are not limited to: strep pharyngitis, URI, tonsillitis, peritonsillar abscess, influneza Vital signs: are WNL, pt. is afebrile H&PE are most consistent with: Strep pharyngitis ORDERS: Azithromycin, Phenergan ED INTERVENTIONS: None required at this time. DISCHARGE: At this time pt. is stable for d/c to home. Will provide printed patient care instructions, and any necessary prescriptions. Care plan and follow up instructions have been discussed with the patient prior to discharge. Patient to follow-up with primary care provider, if worsening symptoms return to the emergency room Last Vital Signs Date Time Temp Pulse Resp B/P (MAP) Pulse Ox O2 Delivery O2 Flow Rate FiO2 02/03/19 16:55 115 18 Room Air 02/03/19 16:46 100.8 109/58 (75) 96 Disposition: HOME, SELF-CARE Condition: Stable Scripts Promethazine Hcl (PROMETHAZINE HCL*) 6.25 Mg/5 Ml Syrup 5 ML ORAL Q6H, #120 ML 0 Refills Prov: Lazarus Snyder 02/03/19 Azithromycin* (ZITHROMAX*) 250 Mg Tablet 250 MG ORAL DAILY, #6 TAB 0 Refills Take two tables once daily for 1 day, then one tablet once daily for 4 days. Prov: Lazarus Snyder 02/03/19 Patient Instructions: Pharyngitis Additional Instructions: Take medication as directed, follow-up with your primary care provider, if worsening symptoms return to the emergency room Lazarus Snyder Feb 03, 2019 17:05
== END | disposition home or self-care (01) ==
LOC: EMR 17:05
DX: J02.9 Acute pharyngitis, unspecified (principal); J45.909 Unspecified asthma, uncomplicated
CPT/HCPCS: 99282

== ENCOUNTER 2019-08-09 16:23 | Emergency (ER) | payer MEDICAID ==
[~2019-08-09] VITALS: Ht 162.6 cm; Wt 72.6 kg
[~2019-08-09 16:23] MED LIST changes: +IBU800 MG PO; +LEVAQUIN750 MG ORAL; +VENTOLIN HFA18 GM INH
[2019-08-09 17:10] VITALS: BP 102/59
[2019-08-09] MEDS ORDERED: Ketorolac 30mg Inj IV ONE (17:15)
[2019-08-09 19:30] LABS: HEMATOCRIT 35.3 % (37.0-47.0); HEMOGLOBIN 10.8 G/DL (12.0-16.0); MEAN CORPUSCULAR VOLUME 90 FL (80-99); PLATELET COUNT 221 K/UL (150-450); RED BLOOD COUNT 3.94 M/UL (4.20-5.40); WHITE BLOOD COUNT 10.1 K/UL (4.8-10.8)
[2019-08-09 19:31] LABS: BASOPHILS % (AUTO) 0.6 % (0.0-2.0); COLOR,URINE AMBER; LYMPHOCYTES % (AUTO) 10.6 % (20.0-45.0); MONOCYTES % (AUTO) 7.4 % (1.0-10.0); NEUTROPHILS % (AUTO) 81.4 % (45.0-75.0)
[2019-08-09 19:32] LABS: APPEARANCE,URINE CLOUDY; BILIRUBIN, URINE NEGATIVE (NEGATIVE); GLUCOSE, URINE (UA) NEGATIVE (NEGATIVE); KETONES,URINE NEGATIVE (NEGATIVE); LEUKOCYTE ESTERASE ,URINE 3+ (NEGATIVE); NITRITE,URINE POSITIVE (NEGATIVE); PROTEIN,URINE 2+ (NEGATIVE); UROBILINOGEN,URINE NORMAL MG/DL (0.0-1.0)
[2019-08-09 19:34] LABS: ALANINE AMINOTRANSFERASE 7 U/L (12-78); ANION GAP 17 mmol/L (5-15); ASPARTATE AMINO TRANSFERASE 21 U/L (15-37); BILIRUBIN,TOTAL 0.8 MG/DL (0.2-1.0); BLOOD UREA NITROGEN 10 mg/dL (7-18); CALCIUM 8.6 MG/DL (8.5-10.1); CARBON DIOXIDE 20 MMOL/L (21-32); CHLORIDE 99 MMOL/L (98-107); CREATININE 0.8 MG/DL (0.55-1.30); POTASSIUM 3.5 MMOL/L (3.5-5.1); SODIUM 136 MMOL/L (136-145)
[2019-08-09 19:35] VITALS: BP 102/59
[2019-08-09 19:35] LABS: ALBUMIN 3.6 G/DL (3.4-5.0); ALBUMIN/GLOBULIN RATIO 0.8 (1.0-2.7); ALKALINE PHOSPHATASE 62 U/L (46-116)
--- NOTE | 2019-08-09 19:36 | Emergency Room Report ---
History of Present Illness General Chief Complaint: Back Pain-No Injury Source: Patient Present Illness HPI 24-year-old female with no symptom past medical history here complaining of 2 days of right-sided flank pain with radiation Zofran and urinary frequency. Cough. Denies sore throat, loss of taste and smell. Has not taken medication for symptom relief. Denies diffuse abdominal pain, diarrhea, constipation. Oxygenation within normal limits. Denies any drug use, tobacco smoke, alcohol intake. Reports that she has had pyelonephritis last however does not recall when. Denies at this time. Denies vaginal discharge and being sexually active. Allergies: Coded Allergies: No Known Allergies (Unverified , 06/06/15) COVID-19 Screening Contact w/high risk pt: No Recent Travel to affected area: No Experienced COVID-19 symptoms?: Yes COVID-19 symptoms experienced: Fever (T>100.4F or >38C) COVID-19 Testing performed STORM SASH MAKER: No Patient History Last Menstrual Period: 07/28/19 Now: No Immunizations: UTD Reviewed Nursing Documentation: PMH: Agreed; PSxH: Agreed Nursing Documentation-PMH Past Medical History: No History, Except For Hx Asthma: Yes Review of Systems All Other Systems: negative except mentioned in HPI Physical Exam Vital Signs Date Time Temp Pulse Resp B/P (MAP) Pulse Ox O2 Delivery O2 Flow Rate FiO2 08/09/19 16:50 102.4 111 16 102/59 (73) 98 Room Air Sp02 EP Interpretation: reviewed, abnormal - Elevated temperature of 102 F General Appearance: no apparent distress, alert, GCS 15, non-toxic Head: normocephalic, atraumatic Eyes: bilateral eye normal inspection, bilateral eye PERRL ENT: hearing grossly normal, normal pharynx, no angioedema, normal voice Neck: full range of motion, supple/symm/no masses Respiratory: chest non-tender, lungs clear, normal breath sounds, speaking full sentences Cardiovascular #1: regular rate, rhythm, no edema Gastrointestinal: normal bowel sounds, non tender, soft, non-distended, no guarding, no rebound Genitourinary: CVA tenderness (R) Musculoskeletal: back normal Neurologic: alert, motor strength/tone normal, oriented x3, sensory intact, responsive, speech normal Psychiatric: judgement/insight normal, memory normal, mood/affect normal, no suicidal/homicidal ideation Skin: no rash Lymphatic: no adenopathy Medical Decision Making PA Attestation All my diagnosis and treatment plans were reviewed ad discussed with my supervising physician Dr. Pompa Diagnostic Impression: Primary Impression: Pyelonephritis ER Course 24-year-old female with no symptom past medical history here complaining of 2 days of right-sided flank pain with radiation Zofran and urinary frequency. Cough. Denies sore throat, loss of taste and smell. Has not taken medication for symptom relief. Denies diffuse abdominal pain, diarrhea, constipation. Oxygenation within normal limits. Denies any drug use, tobacco smoke, alcohol intake. Reports that she has had pyelonephritis last however does not recall when. Denies at this time. Denies vaginal discharge and being sexually active. Ddx considered but are not limited to: UTI, pyelonephritis, urinary incontinence , prolapsed bladder Vital signs: are WNL, pt. is afebrile H&PE are most consistent with: Pyelonephritis ORDERS: UA, urine cx, CBC, CMP, Keflex, Tylenol ED INTERVENTIONS: Keflex p.o., NS bolus, Toradol, Tylenol DISCHARGE: At this time pt. is stable for d/c to home. Will provide printed patient care instructions, and any necessary prescriptions. Care plan and follow up instructions have been discussed with the patient prior to discharge. Patient to follow primary doctor, does not require hospitalization within normal limit can be treated as outpatient pyelonephritis. No skin is needed at this time. Patient to increase oral hydration, if worsening symptoms return to the emergency room. Last Vital Signs Date Time Temp Pulse Resp B/P (MAP) Pulse Ox O2 Delivery O2 Flow Rate FiO2 08/09/19 17:10 102.4 16 102/59 98 Room Air 08/09/19 16:50 111 Disposition: HOME, SELF-CARE Condition: Stable Scripts Ibuprofen* (MOTRIN*) 600 Mg Tablet 600 MG ORAL THREE TIMES A DAY, #30 TAB Prov: Lazarus Snyder 08/09/19 Ondansetron (Zofran) 4 Mg Tablet 4 MG ORAL Q6H PRN for Nausea & Vomiting, #10 TAB Prov: Lazarus Snyder 08/09/19 Acetaminophen* (TYLENOL EXTRA STRENGTH*) 500 Mg Tablet 500 MG ORAL Q8H PRN for Prn Headache/Temp > 101, #30 TAB 0 Refills Prov: Lazarus Snyder 08/09/19 Cephalexin* (KEFLEX*) 500 Mg Capsule 500 MG ORAL EVERY 6 HOURS for 7 Days, #28 CAP Prov: Lazarus Snyder 08/09/19 Referrals: [facility] (PCP) Patient Instructions: Urinary Tract Infection, [id number] Additional Instructions: Take medication as directed, increase oral hydration, follow with your primary doctor, if worsening symptoms return to the emergency room Lazarus Snyder Aug 09, 2019 19:36
[2019-08-09] MEDS ORDERED: TYLENOL EXTRA500 MG ORAL (19:41)
[2019-08-09] MEDS ORDERED: ZOFRAN4 M1 ORAL (19:41)
[2019-08-09] MEDS ORDERED: IBUPROFEN600 M1 ORAL (19:41)
[2019-08-09] MEDS ORDERED: CEPHALEXIN500 MG ORAL (19:41)
[2019-08-09] MEDS ORDERED: cefTRIAXone 1 GM in NS 55 ML IVPB ONE (19:45)
[2019-08-09] MEDS ORDERED: Cephalexin 500mg cap ORAL ONE (19:45)
== END 2019-08-09 19:50 | disposition home or self-care (01) ==
LOC: EMR 17:25
DX: N12 Tubulo-interstitial nephritis, not specified as acute or chronic (principal); R50.9 Fever, unspecified
CPT/HCPCS: 36415; 80053; 81003; 81025; 83605; 85025; 87086; 87181; 96361; 96374; J1885; J7030; Z7502; 99284

== ENCOUNTER 2019-08-29 18:39 | Emergency (ER) | payer MEDICAID ==
[~2019-08-29] VITALS: Ht 157.5 cm; Wt 74.8 kg
[~2019-08-29 18:39] MED LIST changes: +IBUPROFEN600 M1 ORAL; +TYLENOL EXTRA500 MG ORAL; +ZOFRAN4 M1 ORAL
[2019-08-29 18:46] VITALS: BP 118/76
--- NOTE | 2019-08-29 18:56 | NUR ---
ED Nurse Note: Pt from home walked in due to mild spotting this morning. Pt has hx of last may 2019 and thinks it might be related to it. Also c/o lower abd pain. AAO x4, ambulates with steady gait with non labored breathing.
[2019-08-29] MEDS ORDERED: Acetaminophen 500mg (ES) tab ORAL ONE (19:00)
--- NOTE | 2019-08-29 19:06 | Emergency Room Report ---
History of Present Illness General Chief Complaint: Female Urogenital Problems Source: Patient Present Illness HPI Patient complains about suprapubic pain that began yesterday. It has been it off and on. Also she has some spotting without discharge. She denies any dysuria. She took ibuprofen yesterday and it helped somewhat. She says that the pain was 5/10 at that time and now it is barely present. She does not believe she is but is uncertain. She has an 18-month and a 5-year-old at home. She denies fever or chills. She denies dysuria. She has a slight amount of nausea but with no vomiting. To the triage nurse she reports pain is 3/10. It is suprapubic. No sore throat, chest pain, palpitations, diarrhea, shortness of breath, joint pain, rashes, depression, anxiety, visual changes, dizziness, headache. History of asthma. 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 Last Menstrual Period: 08/11/2019 Now: No Reviewed Nursing Documentation: PMH: Agreed; PSxH: Agreed Nursing Documentation-PMH Hx Asthma: Yes Review of Systems All Other Systems: negative except mentioned in HPI Physical Exam Vital Signs Date Time Temp Pulse Resp B/P (MAP) Pulse Ox O2 Delivery O2 Flow Rate FiO2 08/29/19 18:46 98.2 87 18 118/76 (90) 99 Room Air Sp02 EP Interpretation: reviewed, normal General Appearance: well appearing, no apparent distress, GCS 15 Head: normocephalic Eyes: bilateral eye normal inspection - No pallor, bilateral eye PERRL, bilateral eye EOMI ENT: moist mucus membranes Neck: full range of motion, supple Respiratory: lungs clear, normal breath sounds Cardiovascular #1: regular rate, rhythm, no edema Cardiovascular #2: 2+ radial (R) Gastrointestinal: normal inspection, normal bowel sounds, non tender, no mass, non-distended Genitourinary: no CVA tenderness, deferred - For ultrasound Musculoskeletal: back normal, normal range of motion, no calf tenderness, gait/ station normal Neurologic: alert, oriented x3, grossly normal Psychiatric: mood/affect normal Skin: no rash, warm/dry Medical Decision Making Diagnostic Impression: Primary Impression: Dysfunctional uterine bleeding ER Course Patient presents with vaginal bleeding that is not during her menstrual cycle. Differential includes ectopic , threatened miscarriage, dysfunctional uterine bleeding, fibroid, urinary tract infection amongst others. Evaluation with ultrasound and labs. Treatment with IV hydration. The patient's pain is treated with Tylenol. Laboratory remarkable for minimally low hemoglobin. Normal white count. test is negative. CMP unremarkable. Ultrasound as reported below. Initially reported as a yolk sac however the radiologist reads it as having a polyp or fibroid. Results reviewed with patient. Treatment plan reviewed also. Patient stable for outpatient observation and treatment. Quantitative hCG ordered late. This returned with a value of 1. Last Vital Signs Date Time Temp Pulse Resp B/P (MAP) Pulse Ox O2 Delivery O2 Flow Rate FiO2 08/29/19 18:46 98.2 87 18 118/[address]/MRI/US Diagnostic Results CT/MRI/US Diagnostic Results : Imaging Test Ordered: Pelvic ultrasound Impression No intrauterine gestation is identified. There is an endometrial polyp versus intracavitary fibroid. In the setting of a positive beta hCG, findings may reflect an early intrauterine gestation. An ectopic cannot entirely be excluded. Consider follow-up pelvic ultrasound as clinically indicated. Last Vital Signs Date Time Temp Pulse Resp B/P (MAP) Pulse Ox O2 Delivery O2 Flow Rate FiO2 08/29/19 21:00 98.2 80 18 120/85 100 Room Air Status: improved Disposition: HOME, SELF-CARE Condition: Improved Alvarez Pyle MD Aug 29, 2019 19:06
--- NOTE | 2019-08-29 19:17 | NUR ---
HAND-OFF: Report given to Hue OLIVERA.
--- NOTE | 2019-08-29 19:20 | NUR ---
ED Nurse Note: Report received from JAROD Shah. Pt taken to US.
--- NOTE | 2019-08-29 20:00 | NUR ---
ED Nurse Note: IV line established, blood and urine sent to lab.
--- NOTE | 2019-08-29 20:10 | NUR ---
ED Nurse Note: Pt does not want tylenol at this time, if pt changes her mind she will let RN know.
--- NOTE | 2019-08-29 20:14 | Diagnostic Imaging Report ---
EXAM: US Pelvis Transabdominal, Complete CLINICAL HISTORY: PAIN TECHNIQUE: Real-time complete transabdominal pelvic ultrasound with image documentation. COMPARISON: None FINDINGS: Uterus/cervix: Uterus measures 7.2 x 3.5 x 5.9 cm.. The endometrium measures up to 10 mm. There is a slightly hypoechoic structure seen within the endometrial cavity which measures up to 2 cm. . No myometrial mass. Right ovary: The right ovary measures 2.3 x 2.6 x 1.4 cm. Normal blood flow. Left ovary: The left ovary measures 2.0 x 3.1 x 4.2 cm. Normal blood flow. Free fluid: No free fluid. Bladder: Unremarkable as visualized. Wall is normal thickness for degree of distention. . IMPRESSION: No intrauterine gestation is identified. There is an endometrial polyp versus intracavitary fibroid. In the setting of a positive beta hCG, findings may reflect an early intrauterine gestation. An ectopic cannot entirely be excluded. Consider follow-up pelvic ultrasound as clinically indicated.
[2019-08-29 20:27] LABS: APPEARANCE,URINE CLOUDY; BILIRUBIN, URINE NEGATIVE (NEGATIVE); COLOR,URINE PALE YELLOW; GLUCOSE, URINE (UA) NEGATIVE (NEGATIVE); KETONES,URINE NEGATIVE (NEGATIVE); LEUKOCYTE ESTERASE ,URINE 1+ (NEGATIVE); NITRITE,URINE NEGATIVE (NEGATIVE); PH,URINE 9 (4.5-8.0); PROTEIN,URINE 1+ (NEGATIVE); UROBILINOGEN,URINE NORMAL MG/DL (0.0-1.0)
[2019-08-29 20:29] LABS: ANION GAP 12 mmol/L (5-15); BLOOD UREA NITROGEN 12 mg/dL (7-18); CALCIUM 8.4 MG/DL (8.5-10.1); CARBON DIOXIDE 26 MMOL/L (21-32); CHLORIDE 103 MMOL/L (98-107); CREATININE 0.7 MG/DL (0.55-1.30); POTASSIUM 3.4 MMOL/L (3.5-5.1); SODIUM 141 MMOL/L (136-145)
[2019-08-29 20:33] LABS: ALANINE AMINOTRANSFERASE 13 U/L (12-78); ALBUMIN 4.2 G/DL (3.4-5.0); ALKALINE PHOSPHATASE 71 U/L (46-116); ASPARTATE AMINO TRANSFERASE 9 U/L (15-37); BILIRUBIN,TOTAL 0.2 MG/DL (0.2-1.0)
[2019-08-29 20:36] LABS: BASOPHILS % (AUTO) 1.2 % (0.0-2.0); EOSINOPHILS % (AUTO) 2.2 % (0.0-3.0); HEMATOCRIT 34.7 % (37.0-47.0); LYMPHOCYTES % (AUTO) 6.6 % (20.0-45.0); MEAN CORPUSCULAR VOLUME 88 FL (80-99); MONOCYTES % (AUTO) 7.7 % (1.0-10.0); NEUTROPHILS % (AUTO) 82.4 % (45.0-75.0); PLATELET COUNT 264 K/UL (150-450); RED BLOOD COUNT 3.95 M/UL (4.20-5.40); WHITE BLOOD COUNT 8.2 K/UL (4.8-10.8)
[2019-08-29 21:00] VITALS: BP 120/85
--- NOTE | 2019-08-29 21:00 | NUR ---
ER DISCHARGE NOTE: Patient is cleared to be discharged per ERMD, pt is aox4, on room air, with stable vital signs. pt was given dc instructions, pt was able to verbalize understanding, pt id band and iv site removed without complications. pt is able to ambulate with steady gait. pt took all belongings.
== END 2019-08-29 21:00 | disposition home or self-care (01) ==
LOC: EMR 19:19
DX: N93.9 Abnormal uterine and vaginal bleeding, unspecified (principal); R11.0 Nausea
CPT/HCPCS: 36415; 76830; 76856; 80053; 81003; 83690; 84702; 84703; 85025; 87086; 87491; 87590; Z7502; 99284